=== PATIENT | male | born 1960 | race Caucasian/White ===

== ENCOUNTER 2023-05-26 10:01 | Emergency (ER) | payer OTHER, SELFPAY ==
[2023-05-26 10:06] VITALS: BP 121/79; PULSE 87; RESP 16; TEMP 36.4; O2SAT 96; BMI 27.0
--- NOTE | 2023-05-26 11:20 | ED.ALLEREA ---
HPI - Allergic Reaction <Aditya Mcmahon PA-C - Last Filed: 05/26/23 11:40> General Chief complaint: Allergic Reaction Stated complaint: reaction to meds Time Seen by Provider: 05/26/23 11:20 History of Present Illness HPI narrative: This is a 63-year-old male presents emergency department due to suspected allergic reaction to Bactrim that he was prescribed for UTI. Patient states he began taking Bactrim yesterday and soon after noticed a rash who his right hand as well as top of his head which is extremely itchy. He denies any difficulty breathing or swallowing. States he was stop taking the Bactrim. Denies any chest pain, fevers, nausea, vomiting, or any other concerning signs or symptoms. Related Data Previous Rx's Medication Instructions Recorded nitrofurantoin 100 mg PO Q12H 7 days #14 caps 05/26/23 monohydrate/macrocrystals 100 mg capsule (Macrobid) Allergies Allergy/AdvReac Type Severity Reaction Status Date / Time Sulfa (Sulfonamide AdvReac Verified 05/26/23 10:11 Antibiotics) Review of Systems <Aditya Mcmahon PA-C - Last Filed: 05/26/23 11:40> Review of Systems Narrative: GENERAL: Denies chills, fatigue, malaise, fever, sweats. HEENT: Denies sinus pain, ear pain, sore throat, difficulty swallowing, dizziness. RESPIRATORY: Denies dyspnea, cough, wheezing, hemoptysis, sputum. CARDIOVASCULAR: Denies chest pain, palpitations, orthopnea, edema, GASTROINTESTINAL: Denies nausea, vomiting, abdominal pain, diarrhea, constipation, melena. : Denies dysuria, frequency, incontinence, hematuria, urinary retention. MUSCULOSKELETAL: denies weakness, joint pain, or bony pain SKIN: Reports rash to right hand and top of head NEUROLOGIC: Denies weakness, headache, numbness, change in speech, confusion, seizures, incoordination. PSYCHIATRIC: No concerning psychosocial issues. 12 point review of systems is negative except for those stated above Exam <Aditya Mcmahon PA-C - Last Filed: 05/26/23 11:40> Narrative Exam Narrative: GENERAL: Well-developed patient, in mild distress. HEAD: Atraumatic. Normocephalic. EYES: Pupils equal round and reactive. Extraocular motions intact. No scleral icterus. No injection or drainage. ENT: Nose without bleeding, purulent drainage. Throat without erythema, tonsillar hypertrophy or exudate. Airway patent. NECK: Trachea midline. Non tender CARDIOVASCULAR: Regular rate and rhythm without murmurs, gallops, or rubs. RESPIRATORY: Clear to auscultation. Breath sounds equal bilaterally. No wheezes, rales, or rhonchi. GASTROINTESTINAL: Abdomen soft, non-tender, nondistended. EXTREMITIES: No edema or joint tenderness. BACK: Nontender without deformity or crepitance. No flank tenderness. NEURO: AOx3. SKIN: Proximally 4 cm wide erythematous rash to the palm of the hand. No fluctuance or purulent drainage. Initial Vital Signs Initial Vital Signs: Vital Signs Temperature 97.6 F 05/26/23 10:06 Pulse Rate 87 05/26/23 10:06 Respiratory Rate 16 05/26/23 10:06 Blood Pressure 121/79 05/26/23 10:06 Pulse Oximetry 96 05/26/23 10:06 Oxygen Delivery Method Room Air 05/26/23 10:06 <Laura Gonsales DO - Last Filed: 05/26/23 17:10> Initial Vital Signs Initial Vital Signs: Vital Signs Temperature 97.6 F 05/26/23 10:06 Pulse Rate 87 05/26/23 10:06 Respiratory Rate 16 05/26/23 10:06 Blood Pressure 121/79 05/26/23 10:06 Pulse Oximetry 96 05/26/23 10:06 Oxygen Delivery Method Room Air 05/26/23 10:06 Course <Aditya Mcmahon PA-C - Last Filed: 05/26/23 11:40> Vital Signs Vital signs: Vital Signs - 8 hr 05/26/23 10:06 05/26/23 11:45 Temperature 97.6 F 98.4 F Pulse Rate 87 74 Respiratory Rate 16 16 Blood Pressure 121/79 122/80 Pulse Oximetry 96 98 Oxygen Delivery Method Room Air Room Air <Laura Gonsales DO - Last Filed: 05/26/23 17:10> Vital Signs Vital signs: Vital Signs - 8 hr 05/26/23 10:06 05/26/23 11:45 Temperature 97.6 F 98.4 F Pulse Rate 87 74 Respiratory Rate 16 16 Blood Pressure 121/79 122/80 Pulse Oximetry 96 98 Oxygen Delivery Method Room Air Room Air [facility] [place] Allergic Reaction <Aditya Mcmahon PA-C - Last Filed: 05/26/23 11:40> MDM Narrative Medical decision making narrative: MDM * differential diagnosis includes but not limited to allergic reaction, cellulitis, anaphylaxis * Prior records reviewed: Patient has not been here in the past * My lab interpretation: None obtained * My imgaing interpretation: None obtained * Clinical Decision Rules/Scores evaluated: None * Independent discussions with: None ED Course: This is a 63-year-old male presents emergency department due to suspected allergic reaction to Bactrim after developing rash. Recommended to take Benadryl once he arrives at home. Rash is very mild. No difficulty breathing or swallowing and no concerns for anaphylaxis. We will prescribe Macrobid for the presumed UTI as he does report having urinary urgency as well. Shared Decision Making: Discussed plan with patient who is comfortable with the plan. Social Considerations: None Disposition: Discharged to home. Discharge Plan Departure Patient Disposition: Home Clinical Impression: Allergic reaction Instructions: DI for Adverse Drug Reaction -- Allergic Activity Restrictions/Additional Instructions: Thank you for coming to the [facility] Emergency Department today. As we discussed please stop taking the Bactrim and take Benadryl as directed on the bottle to treat this suspect allergic reaction. You may take the new antibiotic to treat your urinary symptoms. Also recommended follow up with the primary care provider for further evaluation if symptoms continue. I sent your medication to [facility]. I hope you feel better soon. Please follow up with your primary care provider within a week if your symptoms continue. If you do not have a primary care provider please contact the [facility] Resource line at [phone]. They will ask some questions about your medical history and help you get set up with a provider in the community. Prescriptions: New nitrofurantoin monohyd/m-cryst [Macrobid] 100 mg capsule 100 mg PO Q12H 7 Days Qty: 14 0RF Rx Instructions: must administer with a meal/food Referrals: Courtney Robles ARNP [Primary Care Provider] - Stand Alone Forms: Patient Portal/API ED Sign-out <aLura Gonsales DO - Last Filed: 05/26/23 17:10> Cosign ED Attending Coskentonature Attestation: I was immediately available in the department for consultation. Documentation has been reviewed.
[2023-05-26 11:45] VITALS: BP 122/80; PULSE 74; RESP 16; TEMP 36.9; O2SAT 98
== END 2023-05-26 11:45 | disposition home or self-care (01) ==
PROVIDERS: Emergency Provider Physician Assistant Medical; PCP Registered Nurse
DX: T78.40XA Allergy, unspecified, initial encounter (principal)
CPT/HCPCS: 99281

== ENCOUNTER 2023-07-15 08:30 | Outpatient (RCR) | payer OTHER, SELFPAY | END 2023-07-15 10:30 | LOC: PUL 08:30 | PROVIDERS: Referring Provider Internal Medicine Critical Care Medicine; Visit Provider Internal Medicine Critical Care Medicine | DX: J44.9 Chronic obstructive pulmonary disease, unspecified (principal) | CPT/HCPCS: 94625; 94626 ==

== ENCOUNTER → 2023-07-19 07:39 | Outpatient (CLI) | payer OTHER, SELFPAY ==
--- NOTE | 2023-07-19 | DI.US.S_ITS ---
PROCEDURE: US THYROID INDICATIONS: NONTOXIC MULTINODULAR GOITER SEEN ON MRI TECHNIQUE: Real-time scanning was performed of the thyroid gland, with image documentation. COMPARISON: [facility], CT, CT ANGIO CHEST PE, 07/04/2022, 22:45. FINDINGS: Right: Thyroid lobe measures 8.1 x 2.6 x 2.5 cm, and is homogeneous in echotexture. Left: Thyroid lobe measures 5.8 x 2.1 x 1.8 cm, and is homogenous in echotexture. Isthmus: 4 mm thick. Nodule number: 1 Location: Left isthmus Size: 0.7 x 0.7 x 0.4 cm. Composition: Solid Echogenicity: Isoechoic Shape: wider than tall. Margins: Smooth Echogenic foci: None Total points: 3 ACR TI-RADS category: TR 3, mildly suspicious Nodule number: 2 Location: Right inferior Size: 3.1 x 2.1 x 1.8 cm. Composition: Solid Echogenicity: Isoechoic Shape: wider than tall. Margins: Smooth Echogenic foci: None Total points: 3 ACR TI-RADS category: TR 3, mildly suspicious Nodule number: 3 Location: Right inferior anterolateral Size: 0.9 x 0.7 x 0.5 cm. Composition: Predominantly solid Echogenicity: Isoechoic Shape: wider than tall. Margins: Ill-defined Echogenic foci: None Total points: 3 ACR TI-RADS category: TR 3, mildly suspicious No enlarged lymph nodes identified. IMPRESSION: 1. Enlarged thyroid gland. 2. Right inferior thyroid nodule measuring 3.1 cm. TR 3, mildly suspicious. FNA is recommended given its large size. ACR TI-RADS definitions and recommendations: TI-RADS 1 (benign): 0 points. FNA not needed. TI-RADS 2 (not suspicious): 2 points. FNA not needed. TI-RADS 3 (mildly suspicious): 3 points. * FNA if 2.5 cm or larger, follow up if 1.5 cm or larger (at 1, 3, and 5 years). TI-RADS 4 (moderately suspicious): 4-6 points. * FNA if 1.5 cm or larger, follow up if 1 cm or larger (at 1, 2, 3, and 5 years). TI-RADS 5 (highly suspicious): 7 points or more. * FNA if 1 cm or larger, follow up if 0.5 cm or larger (every year for 5 years). Dictated by: Giuseppe Zheng M.D. on 07/19/2023 at 9:18 Approved by: Giuseppe Zheng M.D. on 07/19/2023 at 9:23
== END ==
PROVIDERS: PCP Registered Nurse; Referring Provider Registered Nurse; Visit Provider Registered Nurse
DX: E04.2 Nontoxic multinodular goiter (principal)
CPT/HCPCS: 76536